=== PATIENT | female | born 1940 | race Caucasian/White ===

== ENCOUNTER 2019-07-17 13:00 | Outpatient (RCR) | payer MEDICARE, SELFPAY ==
--- NOTE | 2019-06-30 07:46 | PT.OIE ---
Current Diagnoses Mixed incontinence (06/26/19) Pelvic muscle wasting (06/26/19) Past Surgical History (Last Updated 05/07/18 @ 16:19 by Barbara Markham) History of cataract removal with insertion of prosthetic lens (Resolved) Provider Visit Care Team Role Provider Type Kimberley Saxena MD Attending Provider Physician Specialty: MILIEU MANAGER Address: [address] [place] [address], [id number] Email: [email or web address] Physical Therapy Initial Evaluation PT-OP-A Visit Information Start: 06/26/19 11:13 Freq: Status: Active Protocol: Document 06/26/19 11:15 [facility] (Rec: 06/26/19 11:25 [facility] [id number]) Out-Patient Physical Therapy Visit Information Visit Information Visit Type Initial Evaluation Visit Start Time 11:15 Visit Stop Time 12:00 Total Visit Minutes 45 Visit Number 1 Evaluation Information Evaluation Date 06/26/19 PT-OP-B Current Condition Start: 06/26/19 11:13 Freq: Status: Active Protocol: Document 06/26/19 11:15 [facility] (Rec: 06/26/19 11:25 [facility] [id number]) Current Condition History of Current Condition Onset Date 01/2018 anterior and posterior repair with hysterectomy History of Current Condition Pt reports feeling like she could not empty her bladder since her surgery, she tries to fully empty her bladder and feels like she cant fully empty it. She goes to the bathroom very often due to this. Activity makes her feel like she needs to void. She is unable to delay the need to void and she will leak if delaying the need. She wears minipads for protection. She can sleep through the night. She plays golf and often she has to stop at the half way stop. She voids every hour and a half to 2 hours. Prior Treatments and Tests partial mastectomy 2016 Treatment Goals Patient/Caregiver Goals Treatment goals include decreasing frequency of voiding and being able to golf without out frequent bathroom breaks. Eliminating incontinence Current Functional Impairments (Reported) Functional Limitations- Recreation/ limited ability to engage in Hobbies activities such as golf due to frequency of urination and leakage PT-OP-F Manual Assessment Start: 06/26/19 11:13 Freq: Status: Active Protocol: Document 06/26/19 11:15 [facility] (Rec: 06/30/19 07:44 [facility] [email or web address]) Manual Assessments Soft Tissue Assessment Soft Tissue Mobility Assessment guarding in the left lateral wall of the levator ani, tightness in the deep hip ER on the left PT-OP-I Pelvic Floor Start: 06/26/19 11:13 Freq: Status: Active Protocol: Document 06/26/19 11:15 [facility] (Rec: 06/30/19 07:44 [facility] [email or web address]) Pelvic Floor Assessment Urine Pelvic Floor Surgery Yes Urinary Symptoms Urge Sensation Incomplete Emptying Other Urinary Symptoms symptoms began following her anterior posterior repair in 2018, unable to fully empty her bladder Leakage Size Medium Leakage Cause Urge Leaks Per Day intermittent Voiding Frequency every 1.5 hours Nocturia no Urine Pad Type Panty Liner Pelvic Clock Pelvic Clock 12-3 Atrophy Pelvic Clock 3-6 Guarding Tightness Pelvic Clock 6-9 Atrophy Pelvic Clock 9-12 Atrophy SEMG (uV) Baseline 2.7 10 Second Contraction 5.7 Recruitment Pattern Poor/Slow Relaxation Poor/Slow Holding Fair Stability of Hold Poor/Slow SEMG Stability of Rest Poor/Slow Contraction Ability Voluntary Contraction Weak Voluntary Relaxation Weak Manual Muscle Testing Left 1 Manual Muscle Testing Right 2 Manual Muscle Testing Anterior 2 Manual Muscle Testing Posterior 2 Muscle Endurance (Seconds) 5 Comments Pelvic Floor Comments guarded left lateral wall of the levator ani, elevated resting tone on EMG biofeedback at 2.7 uv. Average on EMG biofeedback is 5.7 with max of 10.2. Pt also has a chronic cough at this time that she contracted when she was traveling in [place]. She tends to bulge out her belly with coughing placing downward pressure on her bladder. PT-OP-M Strength Start: 06/30/19 07:44 Freq: Status: Active Protocol: Document 06/26/19 11:15 [facility] (Rec: 06/30/19 07:45 [facility] [email or web address]) Hip Strength Hip Manual Muscle Testing Right Abduction 4- Good- External Rotation 4- Good- Left Abduction 3 Fair External Rotation 3 Fair PT-OP-Q Treatments Start: 06/26/19 11:13 Freq: Status: Active Protocol: Document 06/26/19 11:15 [facility] (Rec: 06/30/19 07:44 [facility] [email or web address]) Therapeutic Exercises Supine Exercises 1 Supine Exercise Name pelvic floor long holds x 10 sec Reps/Minutes 5 reps at a time due to fatigue Neuro Re-Education Treatment Other Activities 1 Details Neuromuscular education of the pelvic floor Comments facilitation of all parts of the pelvic floor utilizing EMG biofeedback and imagery to help facilitate the muscles. Taina is not able to feel the sensation of a pelvic floor contraction at this time . PT-OP-T Assessment and Plan Start: 06/26/19 11:13 Freq: Status: Active Protocol: Document 06/26/19 11:15 [facility] (Rec: 06/30/19 07:44 [facility] [email or web address]) Physical Therapy Assessment Rehab Potential Rehabilitation Potential Excellent Evaluation Complexity Number of Personal Factors/Comorbidities 0 Number of Body Systems Impaired 1-2 Clinical Presentation at Evaluation Stable Impairments Impairments Activity Tolerance Functional Activities Sensation Soft Tissue Mobility Strength Tone Other Impairments limited in playing golf and Taina has stopped playing tennis due to leakage Goals Four Impairment elevated resting tone of the levator ani on EMG biofeedback and guarding L Commercial Real Estate Assistant Goal (LTG) Taina is educated in relaxed awareness of her pelvic floor and is able to rest to baseline assisting with improved emptying of her bladder when voiding LTG Duration 8 weeks Three Impairment urinary urgency and frequency limiting recreational activities Group Home Goal (LTG) With urge deference technique and bladder retraining Taina is able to play golf without having to stop mid way to void , she notes she is able to delay the need to void with greater ease and is voiding every 2.5 to 3 hours during the day Two Impairment chronic cough with downward pressure on the bladder Short Term Goal (STG) Taina is educated in bracing of her pelvic floor when she coughs to avoid downward pressure STG Duration 3 weeks One Impairment pelvic floor weakness and decreased sensation of contraction Short Term Goal (STG) With EMG biofeedback and guided imagery techniques Taina is able to feel the contraction of her pelvic floor STG Duration 3-4 weeks Commercial Real Estate Assistant Goal (LTG) Improve strength from 1/5 MMT left lateral wall and 2/5 anterior, right, and posterior rogers of the pelvic floor to 3/5 or better for improved bladder support LTG Duration 8 weeks. Assessment Summary Assessment Taina presents to PT today with c/o not being able to fully void, frequency urgency and leakage. She reports her symptoms began following her anterior/posterior repair in January of 2018. With examination today she is coughing a great deal placing pressure down on her bladder. She reports she has had a cough for the past two months and is working on clearing this with medication from her doctor. She is weak 2/5 MMT in the right, posterior, and anterior rogers of the levator ani and guarded and weak 1/5 in the left lateral wall. She shows elevated tone on EMG biofeedback and lacks sensation of a pelvic floor contraction. Treatment will include improved awareness of the pelvic floor, urge deference technique, bladder retraining, pelvic floor strengthening and endurance training and hip stabilization exercises. She is a good candidate for PT. Physical Therapy Plan Frequency and Duration Frequency of Treatment 1x/Week Duration of Treatment 8 weeks Plan of Care Start Date 06/26/19 Plan of Care End Date 08/28/19 Therapeutic Interventions Therapeutic Interventions Home Exercise Program Manual Therapy Neuromuscular Re-education Patient/Caregiver Education Self-Care/Home Management Therapeutic Exercises Modalities Biofeedback Electric Stimulation Next Visit Focus/Plan Next Note Type Treatment Note Next Visit Plan Begin stretches for the hips and pelvic floor, hip ER and abduction for stabiization and continue with neuro- reeducation utilizing EMG biofeedback
--- NOTE | 2019-07-07 07:20 | PT.OTN ---
Current Diagnoses Mixed incontinence (07/03/19) Pelvic muscle wasting (07/03/19) Physical Therapy Treatment Note PT-OP-A Visit Information Start: 06/26/19 11:13 Freq: Status: Active Protocol: Document 07/03/19 13:00 [facility] (Rec: 07/07/19 07:20 [facility] [email or web address]) Out-Patient Physical Therapy Visit Information Visit Information Visit Type Treatment Note Visit Start Time 13:00 Visit Stop Time 13:45 Total Visit Minutes 45 Visit Number 2 PT-OP-B Current Condition Start: 06/26/19 11:13 Freq: Status: Active Protocol: Document 06/26/19 11:15 [facility] (Rec: 06/26/19 11:25 [facility] [id number]) Current Condition History of Current Condition Onset Date 01/2018 anterior and posterior repair with hysterectomy History of Current Condition Pt reports feling like she could not empty her bladder since her surgery, she tries to fully empty her bladder and feels like she cant fully empty it. She goes to the bathroom very often due to this. Activity makes her feel like she needs to void. She is unable to delay the need to void and she will leak if delaying the need. She wears minipads for protection. She can sleep through the night. She plays golf and often she has to stop at the half way stop. She voids every hour and a half to 2 hours. Prior Treatments and Tests partial masectomy 2016 Treatment Goals Patient/Caregiver Goals Treatment goals include decreasing frequency of voiding and being able to golf without out frequent bathroom breaks. Eliminating incontinence Current Functional Impairments (Reported) Functional Limitations- Recreation/ limited ability to engage in Hobbies activities such as golf due to frequency of urination and leakage PT-OP-C Subjective Start: 06/26/19 11:13 Freq: Status: Active Protocol: Document 07/03/19 13:00 [facility] (Rec: 07/07/19 07:20 [facility] [email or web address]) OP-PT Subjective Patient Comments Patient Comments Taina reports she has been using a inhaler so her coughing is not as much now. She has been trying to work on her exercises PT-OP-F Manual Assessment Start: 06/26/19 11:13 Freq: Status: Active Protocol: Document 06/26/19 11:15 [facility] (Rec: 06/30/19 07:44 [facility] [email or web address]) Manual Assessments Soft Tissue Assessment Soft Tissue Mobility Assessment guarding in the left lateral wall of the levator ani, tightness in the deep hip ER on the left PT-OP-I Pelvic Floor Start: 06/26/19 11:13 Freq: Status: Active Protocol: Document 06/26/19 11:15 [facility] (Rec: 06/30/19 07:44 [facility] [email or web address]) Pelvic Floor Assessment Urine Pelvic Floor Surgery Yes Urinary Symptoms Urge Sensation,Incomplete Emptying Other Urinary Symptoms symptoms began following her anterior posterior repair in 2018, unable to fully empty her bladder Leakage Size Medium Leakage Cause Urge Leaks Per Day intermittent Voiding Frequency every 1.5 hours Nocturia no Urine Pad Type Panty Liner Pelvic Clock Pelvic Clock 12-3 Atrophy Pelvic Clock 3-6 Guarding,Tightness Pelvic Clock 6-9 Atrophy Pelvic Clock 9-12 Atrophy SEMG (uV) Baseline 2.7 10 Second Contraction 5.7 Recruitment Pattern Poor/Slow Relaxation Poor/Slow Holding Fair Stability of Hold Poor/Slow SEMG Stability of Rest Poor/Slow Contraction Ability Voluntary Contraction Weak Voluntary Relaxation Weak Manual Muscle Testing Left 1 Manual Muscle Testing Right 2 Manual Muscle Testing Anterior 2 Manual Muscle Testing Posterior 2 Muscle Endurance (Seconds) 5 Comments Pelvic Floor Comments guarded left lateral wall of the levator ani, elevated resting tone on EMG biofeedback at 2.7 uv. Average on EMG biofeedback is 5.7 with max of 10.2. Pt also has a chronic cough at this time that she contracted when she was traveling in [place]. She tends to bulge out her belly with coughing placing downward pressure on her bladder. PT-OP-M Strength Start: 06/30/19 07:44 Freq: Status: Active Protocol: Document 06/26/19 11:15 [facility] (Rec: 06/30/19 07:45 [facility] [email or web address]) Hip Strength Hip Manual Muscle Testing Right Abduction 4- Good- External Rotation 4- Good- Left Abduction 3 Fair External Rotation 3 Fair PT-OP-Q Treatments Start: 06/26/19 11:13 Freq: Status: Active Protocol: Document 07/03/19 13:00 [facility] (Rec: 07/07/19 07:20 [facility] [email or web address]) Therapeutic Exercises Supine Exercises 6 Supine Exercise Name roll outs with theraband Reps/Minutes 2x10 reps 5 Supine Exercise Name isometric adduction with pelvic floor squeeze Reps/Minutes 3 x 10 reps 4 Supine Exercise Name templates for eccentric control and coordination utilizing EMG biofeedback Reps/Minutes x 10 min 3 Supine Exercise Name quick contractions Reps/Minutes x 10 reps 2 Supine Exercise Name relaxed awareness of the pelvic floor with EMG biofeedback 1 Supine Exercise Name pelvic floor long holds x 10 sec Reps/Minutes able to complete 10 reps x 10 second holds PT-OP-T Assessment and Plan Start: 06/26/19 11:13 Freq: Status: Active Protocol: Document 07/03/19 13:00 [facility] (Rec: 07/07/19 07:20 [facility] [email or web address]) Physical Therapy Assessment Assessment Summary Assessment Taina was able to perform a 10 second hold today of her pelvic floor which is better than last week. She is still shakey and loses the contraction on EMG biofeedback but she was able to complete 10 reps. Her average on EMG biofeedback was 6.7 with 11./8 max contraction. COntinue to work on resting tone and bladder retraining Physical Therapy Plan Frequency and Duration Frequency of Treatment 1x/Week Duration of Treatment 8 weeks Plan of Care Start Date 06/26/19 Plan of Care End Date 08/28/19 Next Visit Focus/Plan Next Note Type Treatment Note Next Visit Plan add in hip stretches and cobra stretch next visit to encourage full pelvic floor relaxation to improve voiding
--- NOTE | 2019-07-13 20:05 | PT.OTN ---
Current Diagnoses Mixed incontinence (07/10/19) Pelvic muscle wasting (07/10/19) Physical Therapy Treatment Note PT-OP-A Visit Information Start: 06/26/19 11:13 Freq: Status: Active Protocol: Document 07/10/19 13:00 [facility] (Rec: 07/13/19 20:05 [facility] [email or web address]) Out-Patient Physical Therapy Visit Information Visit Information Visit Type Treatment Note Visit Start Time 13:00 Visit Stop Time 13:45 Total Visit Minutes 45 Visit Number 3 Number of SPECIAL EDUCATION PROFESSIONAL Visits 0 PT-OP-B Current Condition Start: 06/26/19 11:13 Freq: Status: Active Protocol: Document 06/26/19 11:15 [facility] (Rec: 06/26/19 11:25 [facility] [id number]) Current Condition History of Current Condition Onset Date 01/2018 anterior and posterior repair with hysterectomy History of Current Condition Pt reports feling like she could not empty her bladder since her surgery, she tries to fully empty her bladder and feels like she cant fully empty it. She goes to the bathroom very often due to this. Activity makes her feel like she needs to void. She is unable to delay the need to void and she will leak if delaying the need. She wears minipads for protection. She can sleep through the night. She plays golf and often she has to stop at the half way stop. She voids every hour and a half to 2 hours. Prior Treatments and Tests partial masectomy 2016 Treatment Goals Patient/Caregiver Goals Treatment goals include decreasing frequency of voiding and being able to golf without out frequent bathroom breaks. Eliminating incontinence Current Functional Impairments (Reported) Functional Limitations- Recreation/ limited ability to engage in Hobbies activities such as golf due to frequency of urination and leakage PT-OP-C Subjective Start: 06/26/19 11:13 Freq: Status: Active Protocol: Document 07/10/19 13:00 [facility] (Rec: 07/13/19 20:05 [facility] [email or web address]) OP-PT Subjective Patient Comments Patient Comments pt reports she is no working on yu her pelvic floor prior to a cough or sneeze and she has had good success with this and urge deference technique. She is still coughing and will be seeing a lung specialist. Still having difficulty fully emptying her bladder. PT-OP-F Manual Assessment Start: 06/26/19 11:13 Freq: Status: Active Protocol: Document 06/26/19 11:15 [facility] (Rec: 06/30/19 07:44 [facility] [email or web address]) Manual Assessments Soft Tissue Assessment Soft Tissue Mobility Assessment guarding in the left lateral wall of the levator ani, tightness in the deep hip ER on the left PT-OP-I Pelvic Floor Start: 06/26/19 11:13 Freq: Status: Active Protocol: Document 06/26/19 11:15 [facility] (Rec: 06/30/19 07:44 [facility] [email or web address]) Pelvic Floor Assessment Urine Pelvic Floor Surgery Yes Urinary Symptoms Urge Sensation,Incomplete Emptying Other Urinary Symptoms symptoms began following her anterior posterior repair in 2018, unable to fully empty her bladder Leakage Size Medium Leakage Cause Urge Leaks Per Day intermittent Voiding Frequency every 1.5 hours Nocturia no Urine Pad Type Panty Liner Pelvic Clock Pelvic Clock 12-3 Atrophy Pelvic Clock 3-6 Guarding,Tightness Pelvic Clock 6-9 Atrophy Pelvic Clock 9-12 Atrophy SEMG (uV) Baseline 2.7 10 Second Contraction 5.7 Recruitment Pattern Poor/Slow Relaxation Poor/Slow Holding Fair Stability of Hold Poor/Slow SEMG Stability of Rest Poor/Slow Contraction Ability Voluntary Contraction Weak Voluntary Relaxation Weak Manual Muscle Testing Left 1 Manual Muscle Testing Right 2 Manual Muscle Testing Anterior 2 Manual Muscle Testing Posterior 2 Muscle Endurance (Seconds) 5 Comments Pelvic Floor Comments guarded left lateral wall of the levator ani, elevated resting tone on EMG biofeedback at 2.7 uv. Average on EMG biofeedback is 5.7 with max of 10.2. Pt also has a chronic cough at this time that she contracted when she was traveling in [place]. She tends to bulge out her belly with coughing placing downward pressure on her bladder. PT-OP-M Strength Start: 06/30/19 07:44 Freq: Status: Active Protocol: Document 06/26/19 11:15 [facility] (Rec: 06/30/19 07:45 [facility] [email or web address]) Hip Strength Hip Manual Muscle Testing Right Abduction 4- Good- External Rotation 4- Good- Left Abduction 3 Fair External Rotation 3 Fair PT-OP-Q Treatments Start: 06/26/19 11:13 Freq: Status: Active Protocol: Document 07/10/19 13:00 [facility] (Rec: 07/13/19 20:05 [facility] [email or web address]) Therapeutic Exercises Supine Exercises 7 Supine Exercise Name pelvic floor stretch with modified squat/happy baby in supine Reps/Minutes hold 1-2 minutes 6 Supine Exercise Name roll outs with theraband Reps/Minutes 2x10 reps 5 Supine Exercise Name isometric adduction with pelvic floor squeeze Reps/Minutes 3 x 10 reps 4 Supine Exercise Name templates for eccentric control and coordination utilizing EMG biofeedback Reps/Minutes x 10 min 3 Supine Exercise Name quick contractions Reps/Minutes x 10 reps 2 Supine Exercise Name relaxed awareness of the pelvic floor with EMG biofeedback 1 Supine Exercise Name pelvic floor long holds x 10 sec Reps/Minutes able to complete 10 reps x 10 second holds PT-OP-T Assessment and Plan Start: 06/26/19 11:13 Freq: Status: Active Protocol: Document 07/10/19 13:00 [facility] (Rec: 07/13/19 20:05 [facility] [email or web address]) Physical Therapy Assessment Assessment Summary Assessment average contraction today of 6 .9 uv with max of 18.3 uv. Added in stretches as resting tone is still a little elevated. Tried cobra stretch but this aggravated her low back Physical Therapy Plan Frequency and Duration Frequency of Treatment 1x/Week Duration of Treatment 8 weeks Plan of Care Start Date 06/26/19 Plan of Care End Date 08/28/19 Next Visit Focus/Plan Next Note Type Treatment Note Next Visit Plan continue to strengthen the pelvic floor and stretches to help with full emptying of the bladder.
--- NOTE | 2019-07-17 14:00 | PT.OTN ---
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 She goes to the bathroom very often due to this. Activity makes her feel like she needs to void. She is unable to delay the need to void and she will leak if delaying the need. She wears minipads for protection. She can sleep through the night. She plays golf and often she has to stop at the half way stop. She voids every hour and a half to 2 hours. Prior Treatments and Tests partial masectomy 2016 Treatment Goals Patient/Caregiver Goals Treatment goals include decreasing frequency of voiding and being able to golf without out frequent bathroom breaks. Eliminating incontinence Current Functional Impairments (Reported) Functional Limitations- Recreation/ limited ability to engage in Hobbies activities such as golf due to frequency of urination and leakage PT-OP-C Subjective Start: 06/26/19 11:13 Freq: Status: Active Protocol: Document 07/17/19 13:56 [facility] (Rec: 07/17/19 13:59 [facility] [email or web address]) OP-PT Subjective Patient Comments Patient Comments Taina reports she has been doing beter with ability to void. She has one question today on her exercises but then feels ready to try them out on her own for a while PT-OP-F Manual Assessment Start: 06/26/19 11:13 Freq: Status: Active Protocol: Document 06/26/19 11:15 [facility] (Rec: 06/30/19 07:44 [facility] [email or web address]) Manual Assessments Soft Tissue Assessment Soft Tissue Mobility Assessment guarding in the left lateral wall of the levator ani, tightness in the deep hip ER on the left PT-OP-I Pelvic Floor Start: 06/26/19 11:13 Freq: Status: Active Protocol: Document 06/26/19 11:15 [facility] (Rec: 06/30/19 07:44 [facility] [email or web address]) Pelvic Floor Assessment Urine Pelvic Floor Surgery Yes Urinary Symptoms Urge Sensation,Incomplete Emptying Other Urinary Symptoms symptoms began following her anterior posterior repair in 2018, unable to fully empty her bladder Leakage Size Medium Leakage Cause Urge Leaks Per Day intermittent Voiding Frequency every 1.5 hours Nocturia no Urine Pad Type Panty Liner Pelvic Clock Pelvic Clock 12-3 Atrophy Pelvic Clock 3-6 Guarding,Tightness Pelvic Clock 6-9 Atrophy Pelvic Clock 9-12 Atrophy SEMG (uV) Baseline 2.7 10 Second Contraction 5.7 Recruitment Pattern Poor/Slow Relaxation Poor/Slow Holding Fair Stability of Hold Poor/Slow SEMG Stability of Rest Poor/Slow Contraction Ability Voluntary Contraction Weak Voluntary Relaxation Weak Manual Muscle Testing Left 1 Manual Muscle Testing Right 2 Manual Muscle Testing Anterior 2 Manual Muscle Testing Posterior 2 Muscle Endurance (Seconds) 5 Comments Pelvic Floor Comments guarded left lateral wall of the levator ani, elevated resting tone on EMG biofeedback at 2.7 uv. Average on EMG biofeedback is 5.7 with max of 10.2. Pt also has a chronic cough at this time that she contracted when she was traveling in [place]. She tends to bulge out her belly with coughing placing downward pressure on her bladder. PT-OP-M Strength Start: 06/30/19 07:44 Freq: Status: Active Protocol: Document 06/26/19 11:15 [facility] (Rec: 06/30/19 07:45 [facility] [email or web address]) Hip Strength Hip Manual Muscle Testing Right Abduction 4- Good- External Rotation 4- Good- Left Abduction 3 Fair External Rotation 3 Fair PT-OP-Q Treatments Start: 06/26/19 11:13 Freq: Status: Active Protocol: Document 07/17/19 13:56 [facility] (Rec: 07/17/19 13:59 [facility] [email or web address]) Therapeutic Exercises Supine Exercises 7 Supine Exercise Name pelvic floor stretch with modified squat/happy baby in supine Reps/Minutes hold 1-2 minutes 6 Supine Exercise Name roll outs with theraband Reps/Minutes 2x10 reps 5 Supine Exercise Name isometric adduction with pelvic floor squeeze Reps/Minutes 3 x 10 reps 4 Supine Exercise Name templates for eccentric control and coordination utilizing EMG biofeedback Reps/Minutes x 10 min 3 Supine Exercise Name quick contractions Reps/Minutes x 10 reps 2 Supine Exercise Name relaxed awareness of the pelvic floor with EMG biofeedback 1 Supine Exercise Name pelvic floor long holds x 10 sec Reps/Minutes able to complete 10 reps x 10 second holds PT-OP-T Assessment and Plan Start: 06/26/19 11:13 Freq: Status: Active Protocol: Document 07/17/19 13:56 [facility] (Rec: 07/17/19 13:59 [facility] [email or web address]) Physical Therapy Assessment Assessment Summary Assessment Resting tone to baseline today and good awareness with all thera ex. Still has a cough but seeing a lung specialist tomorrow. Taina would like to do her exercises on her own for a few weeks and will call back should she feel like she needs additional visits Physical Therapy Plan Frequency and Duration Frequency of Treatment 1x/Week Duration of Treatment 8 weeks Plan of Care Start Date 06/26/19 Plan of Care End Date 08/28/19 Next Visit Focus/Plan Next Note Type Treatment Note Next Visit Plan if needed continue PT, if I don't hear back in 3-4 weeks then Taina will be D/C from PT
--- NOTE | 2019-09-15 12:18 | PT.OPDS ---
Current Diagnoses Mixed incontinence (07/17/19) Pelvic muscle wasting (07/17/19) Visit Care Team Role Provider Type Kimberley Saxena MD Attending Provider Physician Specialty: CASH ACCOUNTANT Address: [address] [place] [address], [id number] Email: [email or web address] Visit Number Visit Number 4 Discharge Summary PT-OP-B Current Condition Start: 06/26/19 11:13 Freq: Status: Active Protocol: Document 06/26/19 11:15 [facility] (Rec: 06/26/19 11:25 [facility] [id number]) Current Condition History of Current Condition Onset Date 01/2018 anterior and posterior repair with hysterectomy History of Current Condition Pt reports feling like she could not empty her bladder since her surgery, she tries to fully empty her bladder and feels like she cant fully empty it. She goes to the bathroom very often due to this. Activity makes her feel like she needs to void. She is unable to delay the need to void and she will leak if delaying the need. She wears minipads for protection. She can sleep through the night. She plays golf and often she has to stop at the half way stop. She voids every hour and a half to 2 hours. Prior Treatments and Tests partial masectomy 2017 Treatment Goals Patient/Caregiver Goals Treatment goals include decreasing frequency of voiding and being able to golf without out frequent bathroom breaks. Eliminating incontinence Current Functional Impairments (Reported) Functional Limitations- Recreation/ limited ability to engage in Hobbies activities such as golf due to frequency of urination and leakage PT-OP-C Subjective Start: 06/26/19 11:13 Freq: Status: Active Protocol: Document 07/17/19 13:56 [facility] (Rec: 07/17/19 13:59 [facility] [email or web address]) OP-PT Subjective Patient Comments Patient Comments Taina reports she has been doing beter with ability to void. She has one question today on her exercises but then feels ready to try them out on her own for a while PT-OP-F Manual Assessment Start: 06/26/19 11:13 Freq: Status: Active Protocol: Document 06/26/19 11:15 [facility] (Rec: 06/30/19 07:44 [facility] [email or web address]) Manual Assessments Soft Tissue Assessment Soft Tissue Mobility Assessment guarding in the left lateral wall of the levator ani, tightness in the deep hip ER on the left PT-OP-I Pelvic Floor Start: 06/26/19 11:13 Freq: Status: Active Protocol: Document 06/26/19 11:15 [facility] (Rec: 06/30/19 07:44 [facility] [email or web address]) Pelvic Floor Assessment Urine Pelvic Floor Surgery Yes Urinary Symptoms Urge Sensation,Incomplete Emptying Other Urinary Symptoms symptoms began following her anterior posterior repair in 2018, unable to fully empty her bladder Leakage Size Medium Leakage Cause Urge Leaks Per Day intermittent Voiding Frequency every 1.5 hours Nocturia no Urine Pad Type Panty Liner Pelvic Clock Pelvic Clock 12-3 Atrophy Pelvic Clock 3-6 Guarding,Tightness Pelvic Clock 6-9 Atrophy Pelvic Clock 9-12 Atrophy SEMG (uV) Baseline 2.7 10 Second Contraction 5.7 Recruitment Pattern Poor/Slow Relaxation Poor/Slow Holding Fair Stability of Hold Poor/Slow SEMG Stability of Rest Poor/Slow Contraction Ability Voluntary Contraction Weak Voluntary Relaxation Weak Manual Muscle Testing Left 1 Manual Muscle Testing Right 2 Manual Muscle Testing Anterior 2 Manual Muscle Testing Posterior 2 Muscle Endurance (Seconds) 5 Comments Pelvic Floor Comments guarded left lateral wall of the levator ani, elevated resting tone on EMG biofeedback at 2.7 uv. Average on EMG biofeedback is 5.7 with max of 10.2. Pt also has a chronic cough at this time that she contracted when she was traveling in [place]. She tends to bulge out her belly with coughing placing downward pressure on her bladder. PT-OP-M Strength Start: 06/30/19 07:44 Freq: Status: Active Protocol: Document 06/26/19 11:15 [facility] (Rec: 06/30/19 07:45 [facility] [email or web address]) Hip Strength Hip Manual Muscle Testing Right Abduction 4- Good- External Rotation 4- Good- Left Abduction 3 Fair External Rotation 3 Fair PT-OP-T Assessment and Plan Start: 06/26/19 11:13 Freq: Status: Active Protocol: Document 09/15/19 12:15 [facility] (Rec: 09/15/19 12:17 [facility] [email or web address]) Physical Therapy Assessment Goals Four Impairment elevated resting tone of the levator ani on EMG biofeedback and guarding L 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 Operator Helper Goal (LTG) Taina is educated in relaxed awareness of her pelvic floor and is able to rest to baseline assisting with improved emptying of her bladder when voiding GOAL MET LTG Duration 8 weeks Three Impairment urinary urgency and frequency limiting recreational activities Care Home Goal (LTG) With urge deference technique and bladder retraining Taina is able to play golf without having to stop mid way to void , she notes she is able to delay the need to void with greater ease and is voiding every 2.5 to 3 hours during the day GOAL MET Two Impairment chronic cough with downward pressure on the bladder Short Term Goal (STG) Taina is educated in bracing of her pelvic floor when she coughs to avoid downward pressure GOAL MET STG Duration 3 weeks One Impairment pelvic floor weakness and decreased sensation of contraction Short Term Goal (STG) With EMG biofeedback and guided imagery techniques Taina is able to feel the contraction of her pelvic floor STILL DIFFICULT TO FEEL STG Duration 3-4 weeks Care Home Goal (LTG) Improve strength from 1/5 MMT left lateral wall and 2/5 anterior, right, and posterior rogers of the pelvic floor to 3/5 or better for improved bladder support EXCELLENT PROGRESS LTG Duration 8 weeks. Assessment Summary Assessment As of the last PT visit Resting tone was to baseline and Taina presents with good awareness with all thera ex. Taina would like to do her exercises on her own for a few weeks and will call back should she feel like she needs additional visits Physical Therapy Plan Discharge Physical Therapy Discharge Reasons Patient Request Discharge Comments pt doing better overall with her symptoms. She feel independent with her home program and is ready to DC PT
== END 2019-07-17 14:00 ==
LOC: PHYS 13:00
PROVIDERS: Visit Provider Obstetrics & Gynecology
DX: N39.46 Mixed incontinence (principal); N81.84 Pelvic muscle wasting
CPT/HCPCS: 97110; 97112; 97161